=== PATIENT | male | born 1980 | race Hispanic/Latino ===

== ENCOUNTER 2017-01-07 21:06 | Emergency (ER) | payer MEDICAID ==
[2017-01-07 21:20] VITALS: BP 121/76; PULSE 95; TEMP 97.6; O2SAT 97
--- NOTE | 2017-01-07 22:43 | C.PDOC ---
History Of Present Illness 36 year old male presents to the ER after he hit his head on a stage doorway causing him to fall and land on his right knee. Denies LOC or neck pain. Time Seen by Provider: 01/07/17 21:25 Chief Complaint (Nursing): Abnormal Skin Integrity History Per: Patient History/Exam Limitations: no limitations Onset/Duration Of Symptoms: Hrs Current Symptoms Are (Timing): Still Present Location Of Injury: Right: Knee, Anterior: Head, Posterior: Head Quality Of Symptoms: Other (Laceration) Recent travel outside of the [place]: No Past Medical History Reviewed: Historical Data, Nursing Documentation, Vital Signs Vital Signs: Last Vital Signs Temp 97.6 F 01/07/17 21:15 Pulse 95 H 01/07/17 21:15 Resp 20 01/07/17 22:56 BP 121/76 01/07/17 21:15 Pulse Ox 97 01/08/17 03:55 - Medical History PMH: HIV Surgical History: No Surg Hx Family History: States: Unknown Family Hx - Social History Hx Tobacco Use: No Hx Alcohol Use: No Hx Substance Use: No - Immunization History Hx Tetanus Toxoid Vaccination: Yes Hx Influenza Vaccination: No Hx Pneumococcal Vaccination: Yes Review Of Systems Musculoskeletal: Positive for: Leg Pain Skin: Positive for: Other (Laceration) Neurological: Negative for: Weakness, Numbness Physical Exam - Physical Exam Appears: Non-toxic, No Acute Distress Skin: Warm, Dry Head: Normacephalic, Laceration (0.5 cm shallow oozing to top of head) Eye(s): bilateral: Normal Inspection, PERRL, EOMI Ear(s): Bilateral: Normal Oral Mucosa: Moist Neck: Normal, No Midline Cervical Tenderness, No Paracervical Tenderness, Supple Extremity: Normal ROM (x4), Tenderness (Mildly, right knee), No Deformity, No Swelling Pulses: Left Dorsalis Pedis: Normal, Right Dorsalis Pedis: Normal Neurological/Psych: Oriented x3, Normal Speech, Other (No focal deficits) ED Course And Treatment O2 Sat by Pulse Oximetry: 97 (Room air) Pulse Ox Interpretation: Normal - Other Rad Right knee x-ray X-Ray: Interpreted by Me, Viewed By Me Interpretation: No acute fractures or dislocations. Laceration - Laceration Repair scalp Wound Length (In cm): 0.5 Description Of Wound: Linear, Clean Wound Cleansed With: Sterile Saline Wound Examination: Irrigated With Saline Wound Closure: Lu (#1) Wound Complexity: Simple Medical Decision Making Medical Decision Making: pt with shallow small head lac s/p hitting head on on low doorway, fell onto right knee. one staple placed in lac, knee xray neg on my read. Disposition Counseled Patient/Family Regarding: Studies Performed, Diagnosis, Need For Followup - Disposition Disposition: HOME/ ROUTINE Disposition Time: 22:44 Condition: STABLE Additional Instructions: Please have someone wake you every few hours tonight to see that you are easily woken. Take Tylenol or Motrin for pain. Cold compress to head and right knee several times a day for pain and any swelling. Return to ER for any severe headache, nausea/vomiting, seizure, unusual behavior, difficulty being aroused from sleep. Recommend staple removal in 10 days. Follow up with your PMD in 1- 2 days. 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 - Scribe Statement The provider has reviewed the documentation as recorded by the Scribkrista Castellano All medical record entries made by the Lucilleibkrista were at my direction and personally dictated by me. I have reviewed the chart and agree that the record accurately reflects my personal performance of the history, physical exam, medical decision making, and the department course for this patient. I have also personally directed, reviewed, and agree with the discharge instructions and disposition.
[2017-01-07 22:57] VITALS: RESP 20
--- NOTE | 2017-01-08 11:32 | RAD ---
PROCEDURE: Right Knee Radiographs. HISTORY: s/p fall, pain to lateral patella COMPARISON: None. FINDINGS: BONES: No acute fracture or destructive bony lesion identified. JOINTS: Normal. No osteoarthritis. JOINT EFFUSION: None. OTHER FINDINGS: None. IMPRESSION: Unremarkable radiographs of the right knee.
== END 2017-01-07 22:56 | disposition home or self-care (01) ==
LOC: C.ER 21:06
DX: S01.01XA Laceration without foreign body of scalp, initial encounter (principal); S89.91XA Unspecified injury of right lower leg, initial encounter; W22.8XXA Striking against or struck by other objects, initial encounter

== ENCOUNTER 2018-07-02 05:00 | Emergency (ER) | payer MEDICAID ==
[2018-07-02 05:18] VITALS: BP 106/70; PULSE 108; RESP 20; TEMP 98.3; O2SAT 97
--- NOTE | 2018-07-02 05:43 | C.PDOC ---
History Of Present Illness 38 year old male with PMHx of HIV presents to the ED c/o sore throat, painful swallowing since Monday. Patient noticed today some earache as well. Patient reports he has been taking Advil, Dayquil and drinking tea for his symptoms. Patient denies fever, chills, headache, congestion, cough, SOB, CP, nausea, vomit, diarrhea, abdominal pain. Time Seen by Provider: 07/02/18 05:15 Chief Complaint (Nursing): ENT Problem History Per: Patient History/Exam Limitations: None Onset/Duration Of Symptoms: Days Current Symptoms Are (Timing): Still Present Quality (Mouth/Throat): Tenderness, Swelling Anticoagulant/Antiplatlet Use?: No Recent Aspirin Use: No Past Medical History Reviewed: Historical Data, Nursing Documentation, Vital Signs Vital Signs: Last Vital Signs Temp 98.3 F 07/02/18 05:15 Pulse 108 H 07/02/18 05:15 Resp 20 07/02/18 05:15 BP 106/70 07/02/18 05:15 Pulse Ox 97 07/02/18 05:15 Primary Care Provider: FAMILY PROVIDER,NO - Medical History PMH: HIV Denies: Chronic Kidney Disease Surgical History: No Surg Hx Family History: States: Unknown Family Hx - Social History Hx Tobacco Use: No Hx Alcohol Use: No Hx Substance Use: No - Immunization History Hx Tetanus Toxoid Vaccination: Yes Hx Influenza Vaccination: No Hx Pneumococcal Vaccination: Yes Review Of Systems Constitutional: Negative for: Fever, Chills ENT: Positive for: Throat Pain, Throat Swelling. Negative for: Nose Discharge, Nose Congestion Respiratory: Negative for: Cough, Shortness of Breath Gastrointestinal: Negative for: Nausea, Vomiting, Abdominal Pain Skin: Negative for: Rash Neurological: Negative for: Weakness, Numbness, Headache, Dizziness Physical Exam - Physical Exam Appears: Non-toxic, No Acute Distress Skin: Normal Color, Warm, Dry Head: Atraumatic, Normacephalic Eye(s): bilateral: Normal Inspection Ear(s): Bilateral: TM Obscured By Wax Nose: No Discharge Oral Mucosa: Moist Throat: Exudate ED Course And Treatment O2 Sat by Pulse Oximetry: 97 Disposition - Disposition Forms: [employer] (Scottish)
--- NOTE | 2018-07-02 05:43 | C.PDOC ---
History Of Present Illness 38 year old male with PMHx of HIV presents to the ED c/o sore throat and painful swallowing since Monday. Patient states today he felt earache as well. Patient reports he has been taking Advil, Dayquil and hot tea. Patient denies fever, chills, headache, cough, congestion, SOB, CP, nausea, vomit, abdominal pain, rash, sick contacts. Time Seen by Provider: 07/02/18 05:15 Chief Complaint (Nursing): ENT Problem History Per: Patient History/Exam Limitations: None Onset/Duration Of Symptoms: Days Current Symptoms Are (Timing): Still Present Quality (Mouth/Throat): Tenderness, Swelling Anticoagulant/Antiplatlet Use?: No Recent Aspirin Use: No Past Medical History Reviewed: Historical Data, Nursing Documentation, Vital Signs Vital Signs: Last Vital Signs Temp 98.3 F 07/02/18 05:15 Pulse 108 H 07/02/18 05:15 Resp 20 07/02/18 05:15 BP 106/70 07/02/18 05:15 Pulse Ox 97 07/02/18 05:15 Primary Care Provider: FAMILY PROVIDER,NO - Medical History PMH: HIV Denies: Chronic Kidney Disease Surgical History: No Surg Hx Family History: States: Unknown Family Hx - Social History Hx Tobacco Use: No Hx Alcohol Use: No Hx Substance Use: No - Immunization History Hx Tetanus Toxoid Vaccination: Yes Hx Influenza Vaccination: No Hx Pneumococcal Vaccination: Yes Review Of Systems Constitutional: Negative for: Fever, Chills ENT: Positive for: Ear Pain, Throat Pain, Throat Swelling. Negative for: Nose Discharge, Nose Congestion Respiratory: Negative for: Cough, Shortness of Breath Gastrointestinal: Negative for: Nausea, Vomiting, Abdominal Pain Skin: Negative for: Rash Neurological: Negative for: Headache, Dizziness Physical Exam - Physical Exam Appears: Non-toxic, No Acute Distress Skin: Normal Color, Warm, Dry Head: Atraumatic, Normacephalic Eye(s): bilateral: Normal Inspection Ear(s): Bilateral: TM Obscured By Wax Nose: No Discharge Oral Mucosa: Moist, Other (diffuse ulcers on soft palate) Tongue: No Laceration, Other (geographic tongue) Throat: Exudate (tonsils) Neck: Normal ROM, Supple Lymphatic: No Adenopathy Chest: Symmetrical Cardiovascular: Rhythm Regular Respiratory: Normal Breath Sounds, No Rales, No Rhonchi, No Wheezing Neurological/Psych: Oriented x3, Normal Speech, Normal Cognition Gait: Steady ED Course And Treatment O2 Sat by Pulse Oximetry: 97 (On RA) Pulse Ox Interpretation: Normal Medical Decision Making Medical Decision Making: Plan: * Motrin 600 mg PO Prescribed Nystatin mouthwash Continue treatment for at least 48 hours after symptoms are resolved Tylenol or Motrin as needed for pain Follow up in HIV clinic for reassessment Patient verbalized understanding and is stable for discharge Disposition Counseled Patient/Family Regarding: Diagnosis, Need For Followup, Rx Given - Disposition Referrals: [facility] [Outside] Disposition: HOME/ ROUTINE Disposition Time: 05:43 Condition: STABLE Additional Instructions: 5 mL PO swished in the mouth four times daily each dose is divided so that one-half of each dose is placed in each side of the mouth. Continue treatment for at least 48 hours after symptoms are resolved Tylenol or Motrin as needed for pain Follow up in HIV clinic for reassessment Return to ED if symptoms worsen Prescriptions: Acetaminophen [Tylenol] 650 mg PO Q8 PRN #30 capsule PRN Reason: Pain, Moderate (4-7) Ibuprofen [Motrin] 600 mg PO Q8 PRN #30 tab PRN Reason: Pain, Moderate (4-7) Nystatin [Nystatin Oral Susp] 5 ml PO Q6 #60 ml Instructions: Thrush (DC) Forms: [employer] (Guyanese) - Clinical Impression Clinical Impression: Sore throat, HIV (human immunodeficiency virus infection), Thrush, oral - PA / RN PSYCH / Resident Statement MD/DO has reviewed & agrees with the documentation as recorded. - Scribe Statement The provider has reviewed the documentation as recorded by the Scribkrista David All medical record entries made by the Scribkrista were at my direction and personally dictated by me. I have reviewed the chart and agree that the record accurately reflects my personal performance of the history, physical exam, medical decision making, and the department course for this patient. I have also personally directed, reviewed, and agree with the discharge instructions and disposition.
== END 2018-07-02 06:00 | disposition home or self-care (01) ==
LOC: C.ER 05:00
DX: J02.9 Acute pharyngitis, unspecified (principal); B20 Human immunodeficiency virus [HIV] disease; B37.0 Candidal stomatitis